=== PATIENT | female | born 1965 | race Caucasian/White ===

== ENCOUNTER → 2018-09-01 | Outpatient (REF) | payer OTHER ==
[2018-09-01 12:49] LABS: BASO % 0.4 % (0.0-1.0); EOS % 0.4 % (0.0-3.0); HEMATOCRIT 43.7 % (36.0-47.0); HEMOGLOBIN 14.6 g/dl (12.0-15.5); IMMATURE GRANULOCYTE % 0.4 % (0-3.0); LYMPH # 1.2 10^3/uL (1.5-4.5); LYMPH % 11.3 % (24.0-44.0); MEAN CORPUSCULAR HEMOGLOBIN 30.9 pg (27.0-33.0); MEAN CORPUSCULAR HGB CONC 33.4 g/dl (32.0-36.5); MEAN CORPUSCULAR VOLUME 92.4 fl (80.0-96.0); MONO # 0.5 10^3/uL (0.0-0.8); MONO % 4.8 % (0.0-5.0); NEUTROPHILS # 9.1 10^3/uL (1.8-7.7); NEUTROPHILS % 82.7 % (36.0-66.0); PLATELET COUNT, AUTOMATED 325 10^3/uL (150-450); RED BLOOD COUNT 4.73 10^6/uL (4.00-5.40); RED CELL DISTRIBUTION WIDTH 12.5 % (11.5-14.5); WHITE BLOOD COUNT 10.9 10^3/uL (4.0-10.0)
[2018-09-01 13:41] LABS: ALBUMIN 3.8 GM/DL (3.2-5.2); ALBUMIN/GLOBULIN RATIO 1.52 (1.00-1.93); ALKALINE PHOSPHATASE 51 U/L (45-117); ALT/SGPT 25 U/L (12-78); ANION GAP 8 MEQ/L (8-16); AST/SGOT 17 U/L (7-37); BILIRUBIN,TOTAL 0.4 MG/DL (0.2-1.0); BLOOD UREA NITROGEN 4 MG/DL (7-18); CALCIUM LEVEL 9.4 MG/DL (8.5-10.1); CARBON DIOXIDE LEVEL 29 MEQ/L (21-32); CHLORIDE LEVEL 96 MEQ/L (98-107); CHOLESTEROL LEVEL 133 MG/DL (<200); CHOLESTEROL RISK RATIO 3.243 (<5); CREATININE FOR GFR 0.71 MG/DL (0.55-1.30); GLOMERULAR FILTRATION RATE > 60.0 (>51); GLUCOSE, FASTING 121 MG/DL (70-100); HDL CHOLESTEROL 41 MG/DL (>40); LDL CHOLESTEROL 77 MG/DL (<100); NON-HDL-C 92 MG/DL; POTASSIUM SERUM 4.3 MEQ/L (3.5-5.1); SODIUM LEVEL 133 MEQ/L (136-145); TOTAL 25(OH) VITAMIN D 29.9 NG/ML (30.0-100.0); TOTAL PROTEIN 6.3 GM/DL (6.4-8.2); TRIGLYCERIDES LEVEL 76 MG/DL (<150)
== END ==
LOC: M SFHCADAM 07:56
DX: G43.009 Migraine without aura, not intractable, without status migrainosus (principal); E78.2 Mixed hyperlipidemia; F33.42 Major depressive disorder, recurrent, in full remission; N39.46 Mixed incontinence

== ENCOUNTER 2019-01-02 16:09 | Emergency (ER) | payer OTHER ==
[~2019-01-02] VITALS: Ht 154.9 cm; Wt 60.0 kg
[2019-01-02] MEDS ORDERED: DOCU100C16 (16:33)
[2019-01-02] MEDS ORDERED: PROM25TA12 (16:33)
[2019-01-02] MEDS ORDERED: OXYB5TAB (16:33)
[2019-01-02] MEDS ORDERED: ASPI1TAB PO (16:33)
[2019-01-02] MEDS ORDERED: SM CPOW (16:33)
[2019-01-02] MEDS ORDERED: PROAAER10 INH (16:33)
[2019-01-02] MEDS ORDERED: TRAZ-163 (16:33)
[2019-01-02] MEDS ORDERED: INCR1INH (16:33)
[2019-01-02] MEDS ORDERED: SIMV20TA2 (16:33)
[2019-01-02] MEDS ORDERED: ESTR0.5T3 (16:33)
[2019-01-02 16:53] LABS: BASO % 0.6 % (0.0-1.0); EOS % 0.4 % (0.0-3.0); HEMATOCRIT 34.9 % (36.0-47.0); LYMPH # 2.1 10^3/uL (1.5-4.5); LYMPH % 30.5 % (24.0-44.0); MEAN CORPUSCULAR HEMOGLOBIN 30.9 pg (27.0-33.0); MEAN CORPUSCULAR HGB CONC 34.4 g/dl (32.0-36.5); MEAN CORPUSCULAR VOLUME 89.9 fl (80.0-96.0); MONO # 0.5 10^3/uL (0.0-0.8); MONO % 6.4 % (0.0-5.0); NEUTROPHILS # 4.3 10^3/uL (1.8-7.7); NEUTROPHILS % 61.7 % (36.0-66.0); PLATELET COUNT, AUTOMATED 265 10^3/uL (150-450); RED BLOOD COUNT 3.88 10^6/uL (4.00-5.40)
[2019-01-02 17:08] LABS: INR 1.04; PROTHROMBIN TIME 13.7 SECONDS (12.1-14.4)
[2019-01-02 17:09] LABS: PARTIAL THROMBOPLASTIN TIME 35.5 SECONDS (25.4-37.6)
[2019-01-02 17:12] LABS: D-DIMER QUANT < 270 ng/ml (<500)
[2019-01-02] MEDS ORDERED: NS 1,000 ML IV ONE (17:15)
[2019-01-02] MEDS ORDERED: ONDANSETRON 4MG/2ML VIAL (J2405) IV ONE (17:15)
[2019-01-02 17:16] LABS: ERYTHROCYTE SEDIMENTATION RATE 8 mm/hr (0-30)
[2019-01-02 17:20] LABS: ALBUMIN 3.8 GM/DL (3.2-5.2); ALT/SGPT 18 U/L (12-78); BILIRUBIN,DIRECT < 0.1 MG/DL (0.0-0.2); BILIRUBIN,TOTAL 0.2 MG/DL (0.2-1.0); BLOOD UREA NITROGEN 5 MG/DL (7-18); C REACTIVE PROTEIN QUANTITATIV < 0.30 MG/DL (0.00-0.30); CALCIUM LEVEL 8.3 MG/DL (8.5-10.1); CARBON DIOXIDE LEVEL 28 MEQ/L (21-32); CHLORIDE LEVEL 96 MEQ/L (98-107); CPK CREATINE PHOSPHOKINASE 77 U/L (26-192); CREATININE FOR GFR 0.62 MG/DL (0.55-1.30); FREE T4 1.03 NG/DL (0.76-1.46); GLOMERULAR FILTRATION RATE > 60.0 (>51); GLUCOSE, FASTING 81 MG/DL (70-100); LIPASE 87 U/L (73-393); MB/CK RELATIVE INDEX 1.56 (< OR =4); NT-PRO BNP 143 PG/ML (<125); POTASSIUM SERUM 4.3 MEQ/L (3.5-5.1); SODIUM LEVEL 128 MEQ/L (136-145); TOTAL PROTEIN 6.3 GM/DL (6.4-8.2); TROPONIN I < 0.02 NG/ML (< 0.10)
[2019-01-02] MEDS ORDERED: ISOVUE-370 76% 100ML VIAL (Q9967) As Ordered ONE (17:57)
--- NOTE | 2019-01-02 18:13 | REP ---
Portable chest x-ray: Single view. History: Chest pain. Findings: EKG monitoring electrodes overlie the chest. The lungs are well inflated and clear. Heart size is normal. The aorta is slightly tortuous. No significant bony abnormality is seen. Pulmonary vasculature is not increased. Impression: No active disease. Electronically Signed by Ever Wilde MD 01/02/2019 06:04 P
--- NOTE | 2019-01-02 18:45 | REPVR ---
EXAM: CT Abdomen and Pelvis With Contrast EXAM DATE/TIME: 01/02/2019 5:04 PM CLINICAL HISTORY: 53 years old, female; Pain and signs and symptoms; Vomiting; Abdominal pain; Generalized; Prior surgery; Surgery date: 6+ months; Surgery type: , hysterectomy; Additional info: Nausea/pain TECHNIQUE: Axial computed tomography images of the abdomen and pelvis with intravenous contrast. All CT scans at this facility use at least one of these dose optimization techniques: automated exposure control; mA and/or kV adjustment per patient size (includes targeted exams where dose is matched to clinical indication); or iterative reconstruction. Coronal and sagittal reformatted images were created and reviewed. CONTRAST: Contrast Material: 100 ml of isovue 370; Contrast Route: iv COMPARISON: No relevant prior studies available. FINDINGS: Lower thorax: Atelectasis or scarring right lung base. ABDOMEN: Liver: There is a diffuse decrease in hepatic parenchymal density, consistent with fatty infiltration. Gallbladder and bile ducts: Normal. No calcified stones. No ductal dilation. Pancreas: Normal. No ductal dilation. Spleen: Normal. No splenomegaly. Adrenals: Normal. No mass. Kidneys and ureters: Normal. No hydronephrosis. Stomach and bowel: Mild diverticulosis is present in the distal colon. No diverticulitis. Appendix: No evidence of appendicitis. PELVIS: Bladder: Unremarkable as visualized. Reproductive: There has been a hysterectomy. ABDOMEN and PELVIS: Intraperitoneal space: Normal. No free air. No significant fluid collection. Bones/joints: Degenerative changes L5-S1. Mild central spinal stenosis L4-5. Soft tissues: Unremarkable. Vasculature: The aorta demonstrates mild atherosclerotic calcification. Lymph nodes: Normal. No enlarged lymph nodes. IMPRESSION: 1. There is a diffuse decrease in hepatic parenchymal density, consistent with fatty infiltration. 2. Mild diverticulosis is present in the distal colon. No diverticulitis. 3. There has been a hysterectomy. Electronically signed by: Howard Garcia On 01/02/2019 18:44:43 PM
--- NOTE | 2019-01-02 18:56 | ECGEPIP ---
Stationary ECG Study [facility] - ED Test Date: 2019-01-02 Pat Name: JOCELYNE SEGOVIA Department: Room: - Gender: F Apprentice Plumber: MONICA : 1965 Requested By: SYLVIA Olivarez Order Number: [id number] Reading MD: Demond Covarrubias Measurements Intervals [place] Rate: 66 P: 54 [place]: 196 QRS: 33 QRSD: 90 T: 33 QT: 404 QTc: 426 Interpretive Statements SINUS RHYTHM LOW QRS VOLTAGE IN PRECORDIAL LEADS NSTTW ABNORMALITIES NO PRIORS FOR COMPARISON Electronically Signed On 01-02-2019 18:56:13 EST by Demond Covarrubias
[2019-01-02] MEDS ORDERED: PROMETHAZINE INJ 25 MG/ML VIAL (J2550) As Ordered ONE (19:10)
[2019-01-02] MEDS ORDERED: PROMETHAZINE INJ 25 MG/ML VIAL (J2550) IV ONE (19:15)
[2019-01-02 20:45] LABS: CPK CREATINE PHOSPHOKINASE 58 U/L (26-192); MB/CK RELATIVE INDEX 1.72 (< OR =4); TROPONIN I < 0.02 NG/ML (< 0.10)
[2019-01-02 21:45] VITALS: BP 117/65
[2019-01-02] MEDS ORDERED: DICY10CA13 PO (22:09)
[2019-01-02] MEDS ORDERED: DICYCLOMINE 10 MG CAP PO ONE (22:15)
--- NOTE | 2019-01-03 05:04 | ECGEPIP ---
Stationary ECG Study [facility] - ED Test Date: 2019-01-02 Pat Name: JOCELYNE SEGOVIA Department: Room: - Gender: F Circuit Court Clerk: NIXON : 1965 Requested By: JUN Martino Order Number: [id number] Reading MD: Demond Covarrubias Measurements Intervals [place] Rate: 64 P: 56 [place]: 213 QRS: 49 QRSD: 70 T: 47 QT: 413 QTc: 429 Interpretive Statements SINUS RHYTHM WITH FIRST DEGREE AV BLOCK LOW QRS VOLTAGE IN PRECORDIAL LEADS POSSIBLE INCOMPLETE RIGHT BUNDLE BRANCH BLOCK NSTTW ABNORMALITIES SIMILAR TO PRIOR ON SAME DATE Electronically Signed On 01-03-2019 5:04:29 EST by Demond Covarrubias
== END 2019-01-02 22:21 | disposition home or self-care (01) ==
LOC: M ED 16:09
DX: R07.89 Other chest pain (principal); K58.9 Irritable bowel syndrome, unspecified; I44.0 Atrioventricular block, first degree; E78.5 Hyperlipidemia, unspecified; G43.909 Migraine, unspecified, not intractable, without status migrainosus; J44.9 Chronic obstructive pulmonary disease, unspecified; F41.9 Anxiety disorder, unspecified; F32.9 Major depressive disorder, single episode, unspecified; Z72.0 Tobacco use; Z79.82 Long term (current) use of aspirin; Z79.899 Other long term (current) drug therapy; Z88.0 Allergy status to penicillin; Z88.8 Allergy status to other drugs, medicaments and biological substances
CPT/HCPCS: 71045; 74177; 80048; 80076; 81001; 82550; 82553; 83690; 83880; 84439; 84443; 85025; 85379; 85610; 85652; 85730; 86140; 93005; 93041; 94760; 96361; 96374; 96375; 99285; J2405; Q9967

== ENCOUNTER → 2019-05-26 | Outpatient (REF) | payer OTHER ==
[~2019-05-26] MED LIST: ASPI81TA26 PO; DICY10CA13 PO; DOCU100C16; ESTR0.5T3; INCR1INH; OXYB5TAB; PROAAER10 INH; PROM25TA12; SIMV20TA2; SM CPOW; TRAZ-163
[2019-05-26 13:56] LABS: APPEARANCE, URINE HAZY (CLEAR); BACTERIA, URINE AUTO NEGATIVE (NEGATIVE); BILIRUBIN, URINE AUTO NEGATIVE (NEGATIVE); BLOOD, URINE BLOOD NEGATIVE (NEGATIVE); COLOR, URINE YELLOW (YELLOW); GLUCOSE, URINE (UA) AUTO NEGATIVE (NEGATIVE); KETONE, URINE AUTO NEGATIVE (NEGATIVE); LEUKOCYTE ESTERASE, URINE AUTO NEGATIVE (NEGATIVE); NITRITE, URINE AUTO NEGATIVE (NEGATIVE); PROTEIN, URINE AUTO NEGATIVE (NEGATIVE); RBC, URINE AUTO 0 /HPF (0-3); SPECIFIC GRAVITY URINE AUTO 1.005 (1.002-1.035); SQUAMOUS EPITHELIAL CELL UR AU 0 /HPF (0-6); UROBILINOGEN, URINE AUTO 0.2 mg/dL (0.0-2.0); WBC, URINE AUTO 0 /HPF (0-3)
== END ==
LOC: M SMT 13:18
PROVIDERS: ATTEND Nurse Practitioner Women's Health
DX: N39.46 Mixed incontinence (principal)

== ENCOUNTER → 2019-06-23 | Outpatient (CLI) | payer OTHER ==
[~2019-06-23] MED LIST changes: -OXYB5TAB; +OXYB5TAB2
--- NOTE | 2019-06-23 20:39 | REP ---
RIGHT KNEE, COMPLETE: 06/23/2019. Clinical history: Right knee pain. Findings: Five views are provided. There is no patellar subluxation or dislocation on the sunrise view. No suprapatellar effusion on the lateral projection. There is no narrowing of the medial or lateral compartments, loose body, osteochondral defect or fracture. No avulsion. Impression: 1. There is no fracture, avulsion, loose body, joint effusion or other acute finding about the knee. Electronically Signed by Harry Glynn MD 06/24/2019 07:59 A
== END ==
LOC: M ADAMS 12:52
PROVIDERS: ATTEND Physician Assistant Medical
DX: M25.561 Pain in right knee (principal)

== ENCOUNTER → 2019-12-22 | Outpatient (REF) | payer OTHER ==
[~2019-12-22] MED LIST changes: +OXYB-54; -OXYB5TAB2; -SIMV20TA2; +SIMV20TA22; -TRAZ-163; +TRAZ-257
== END ==
LOC: M LAB REF 17:55
PROVIDERS: ATTEND Dermatology
DX: D48.9 Neoplasm of uncertain behavior, unspecified (principal)

== ENCOUNTER → 2020-01-07 | Outpatient (REF) | payer OTHER ==
[2020-01-07 14:43] LABS: BACTERIA, URINE AUTO NEGATIVE (NEGATIVE); RBC, URINE AUTO 0 /HPF (0-3); SQUAMOUS EPITHELIAL CELL UR AU 1 /HPF (0-6); WBC, URINE AUTO 1 /HPF (0-3)
== END ==
LOC: M SMT 13:06
PROVIDERS: ATTEND Specialist
DX: N39.46 Mixed incontinence (principal)

== ENCOUNTER → 2020-03-03 | Outpatient (REF) | payer OTHER ==
[2020-03-03 17:53] LABS: APPEARANCE, URINE CLEAR (CLEAR); BACTERIA, URINE AUTO NEGATIVE (NEGATIVE); BILIRUBIN, URINE AUTO NEGATIVE (NEGATIVE); BLOOD, URINE BLOOD NEGATIVE (NEGATIVE); COLOR, URINE STRAW (YELLOW); GLUCOSE, URINE (UA) AUTO NEGATIVE (NEGATIVE); KETONE, URINE AUTO NEGATIVE (NEGATIVE); LEUKOCYTE ESTERASE, URINE AUTO NEGATIVE (NEGATIVE); NITRITE, URINE AUTO NEGATIVE (NEGATIVE); PROTEIN, URINE AUTO NEGATIVE (NEGATIVE); RBC, URINE AUTO 0 /HPF (0-3); SPECIFIC GRAVITY URINE AUTO 1.003 (1.002-1.035); SQUAMOUS EPITHELIAL CELL UR AU 1 /HPF (0-6); UROBILINOGEN, URINE AUTO 0.2 mg/dL (0.0-2.0); WBC, URINE AUTO 0 /HPF (0-3)
== END ==
LOC: M SFHCADAM 17:00
PROVIDERS: ATTEND Physician Assistant Medical
DX: R82.90 Unspecified abnormal findings in urine (principal)

== ENCOUNTER 2020-05-05 11:00 | Emergency (ER) | payer OTHER ==
[~2020-05-05] VITALS: Ht 154.9 cm; Wt 62.3 kg
[~2020-05-05 11:00] MED LIST changes: -DOCU100C16; +DOCU100C16 PO; -ESTR0.5T3; +ESTR0.5T3 PO; -INCR1INH; +INCR1INH INH; -SIMV20TA22; +SIMV20TA22 PO; -SM CPOW; +SM CPOW PO; -TRAZ-257; +TRAZ-257 PO
[2020-05-05] MEDS ORDERED: KETOROLAC 30 MG/ML 1ML VIAL IV ONE (11:15)
[2020-05-05 11:41] LABS: BASO # 0.1 10^3/uL (0.0-0.2); BASO % 0.6 % (0.0-1.0); EOS # 0.1 10^3/uL (0.0-0.5); EOS % 0.7 % (0.0-3.0); HEMATOCRIT 40.3 % (36.0-47.0); HEMOGLOBIN 14.1 g/dl (12.0-15.5); LYMPH # 2.2 10^3/uL (1.5-5.0); LYMPH % 24.4 % (24.0-44.0); MEAN CORPUSCULAR HEMOGLOBIN 32.9 pg (27.0-33.0); MEAN CORPUSCULAR VOLUME 94.2 fl (80.0-96.0); MONO # 0.5 10^3/uL (0.0-0.8); MONO % 5.3 % (0.0-5.0); NEUTROPHILS # 6.2 10^3/uL (1.5-8.5); NEUTROPHILS % 68.7 % (36.0-66.0); PLATELET COUNT, AUTOMATED 253 10^3/uL (150-450); RED BLOOD COUNT 4.28 10^6/uL (4.00-5.40)
[2020-05-05 12:22] LABS: ALBUMIN 3.7 GM/DL (3.2-5.2); ALT/SGPT 26 U/L (12-78); BILIRUBIN,DIRECT 0.1 MG/DL (0.0-0.2); BILIRUBIN,TOTAL 0.3 MG/DL (0.2-1.0); BLOOD UREA NITROGEN 8 MG/DL (7-18); CARBON DIOXIDE LEVEL 28 MEQ/L (21-32); CHLORIDE LEVEL 98 MEQ/L (98-107); CREATININE FOR GFR 0.69 MG/DL (0.55-1.30); GLOMERULAR FILTRATION RATE > 60.0 (>51); GLUCOSE, FASTING 96 MG/DL (70-100); LIPASE 65 U/L (73-393); NT-PRO BNP 127 PG/ML (<125); POTASSIUM SERUM 4.4 MEQ/L (3.5-5.1); SODIUM LEVEL 132 MEQ/L (136-145); THYROID STIMULATING HORMONE 0.931 uIU/ML (0.358-3.740); TOTAL PROTEIN 6.5 GM/DL (6.4-8.2)
--- NOTE | 2020-05-05 12:32 | REP ---
REASON FOR EXAM: Chest pain. COMPARISON: 01/02/2019 FINDINGS: The technique utilized in obtaining the radiograph has magnified the cardiac silhouette and accentuated the interstitial markings. The superior mediastinal structures are midline. The cardiac silhouette is unremarkable in size, shape, and position. The diaphragmatic surfaces of the lungs are regular, and the costophrenic angles are clear. The pulmonary chavez are clear. The imaged osseous structures are intact. IMPRESSION: There is no acute cardiopulmonary disease. Electronically Signed by Crow Mejia DO 05/05/2020 04:56 P
[2020-05-05] MEDS ORDERED: AIMO70IN2 SQ (12:33)
[2020-05-05] MEDS ORDERED: ALL10TAB29 PO (12:33)
[2020-05-05] MEDS ORDERED: AMIT25TA PO (12:33)
[2020-05-05] MEDS ORDERED: DARI15TA2 PO (12:33)
[2020-05-05 12:58] LABS: CK-MB VALUE MASS < 1.0 NG/ML (<3.6); CPK CREATINE PHOSPHOKINASE 38 U/L (26-192); MB/CK RELATIVE INDEX 2.63 (< OR =4); TROPONIN I < 0.02 NG/ML (< 0.10)
[2020-05-05] MEDS ORDERED: ISOVUE-370 76% 100ML VIAL As Ordered ONE (13:46)
[2020-05-05] MEDS ORDERED: NORCO, ANEXSIA 5/325MG TABLET (HYDROcodone/ACETAMINOPHEN) PO ONE (14:45)
[2020-05-05 16:45] VITALS: BP 117/71
[2020-05-05 17:37] LABS: CK-MB VALUE MASS < 1.0 NG/ML (<3.6); CPK CREATINE PHOSPHOKINASE 31 U/L (26-192); MB/CK RELATIVE INDEX 3.23 (< OR =4); TROPONIN I < 0.02 NG/ML (< 0.10)
--- NOTE | 2020-05-05 23:26 | REP ---
REASON FOR EXAM: Chest pain. PRIORS: None. CONTRAST: 100 mL Isovue-370. There is excellent visualization of the pulmonary arterial vasculature. There are no focal filling defects present that would be considered consistent with pulmonary emboli. There are no pleural or pericardial effusions. There is no mediastinal or hilar adenopathy or mass. The imaged upper abdomen and imaged osseous structures are within normal limits. Evaluation of the lung hcavez shows mild biapical emphysematous changes and bilateral basilar subsegmental atelectatic changes. IMPRESSION: 1. There is no evidence of pulmonary embolus. 2. Chronic change seen involving the lung chavez, as described above, suggestive of early emphysematous changes. Since there are no priors for comparison, consider followup. Electronically Signed by Crow Mejia DO 05/06/2020 08:53 A
--- NOTE | 2020-05-06 10:08 | ECGEPIP ---
[facility] - ED Test Date: 2020-05-05 Pat Name: JOCELYNE SEGOVIA Department: Room: - Gender: Female Solar Consultant: abram : 1965 Requested By: Whit Holloway Order Number: [id number] Reading MD: Whit Holloway Measurements Intervals [place] Rate: 75 P: 55 [place]: 195 QRS: 26 QRSD: 60 T: 43 QT: 373 QTc: 419 Interpretive Statements SINUS RHYTHM LOW QRS VOLTAGE ANTEROSEPTAL MYOCARDIAL INFARCTION, OF INDETERMINATE AGE INCREASED RATE 01/02/19 Electronically Signed on 05-06-2020 10:08:23 EDT by Whit Holloway
--- NOTE | 2020-05-06 10:12 | ECGEPIP ---
[facility] - ED Test Date: 2020-05-05 Pat Name: JOCELYNE SEGOVIA Department: Room: - Gender: Female Sales Order Clerk: abram : 1965 Requested By: Whit Holloway Order Number: [id number] Reading MD: Whit Holloway Measurements Intervals [place] Rate: 57 P: 55 [place]: 191 QRS: 28 QRSD: 85 T: 48 QT: 437 QTc: 429 Interpretive Statements SINUS BRADYCARDIA LOW QRS VOLTAGE SEPTAL MYOCARDIAL INFARCTION, PROBABLY OLD DECREASED RATE 05/05/20 Electronically Signed on 05-06-2020 10:12:04 EDT by Whit Holloway
--- NOTE | 2020-05-06 10:14 | ECGEPIP ---
[facility] - ED Test Date: 2020-05-05 Pat Name: JOCELYNE SEGOVIA Department: Room: - Gender: Female Laminate Floor Installer: abram : 1965 Requested By: Whit Holloway Order Number: [id number] Reading MD: Whit Holloway Measurements Intervals [place] Rate: 66 P: 53 [place]: 209 QRS: 18 QRSD: 78 T: 30 QT: 415 QTc: 436 Interpretive Statements SINUS RHYTHM LOW QRS VOLTAGE IN PRECORDIAL LEADS SEPTAL MYOCARDIAL INFARCTION, PROBABLY OLD DECREASED RATE 05/05/20 Electronically Signed on 05-06-2020 10:14:30 EDT by Whit Holloway
== END 2020-05-05 17:47 | disposition left against medical advice (07) ==
LOC: M ED 11:00 → EDBD 11:00 → M ED 17:47
DX: R07.89 Other chest pain (principal); R00.1 Bradycardia, unspecified; R91.8 Other nonspecific abnormal finding of lung field; E78.5 Hyperlipidemia, unspecified; J44.9 Chronic obstructive pulmonary disease, unspecified; J30.2 Other seasonal allergic rhinitis; Z86.73 Personal history of transient ischemic attack (TIA), and cerebral infarction without residual deficits; Z95.5 Presence of coronary angioplasty implant and graft; Z72.0 Tobacco use; Z79.82 Long term (current) use of aspirin; Z79.899 Other long term (current) drug therapy; Z88.0 Allergy status to penicillin; Z88.8 Allergy status to other drugs, medicaments and biological substances
CPT/HCPCS: 71045; 71275; 80048; 80076; 82550; 82553; 83690; 83880; 84443; 85025; 93005; 93041; 94760; 96374; 99285; J1885; Q9967

== ENCOUNTER → 2020-05-10 | Outpatient (CLI) | payer OTHER ==
[~2020-05-10] MED LIST changes: +AIMO70IN2 SQ; +AMIT25TA PO; +CETI-24 PO; +DARI15TA11 PO
--- NOTE | 2020-05-10 17:27 | REP ---
CERVICAL SPINE SERIES: REASON: Atraumatic neck pain. No priors. FINDINGS: Seven views of the cervical spine show no acute fracture, dislocation, or subluxation. The intervertebral disc spaces are symmetric and well maintained. The facet joints are well aligned bilaterally. The intervertebral foramina are patent bilaterally, and the neural canal is not encroached upon. There is no destructive osseous lesion. Flexion and extension does not appear to be particularly limited radiographically. The anterior spinal soft tissues appear unremarkable. IMPRESSION: Unremarkable cervical spine series. The dens cannot be effectively evaluated secondary to the superimposition of osseous structures and/or dentition on all views. Electronically Signed by Crow Mejia DO 05/10/2020 06:50 P
--- NOTE | 2020-05-10 17:51 | REP ---
SHOULDER: REASON: Shoulder pain, atraumatic. COMPARISON: No priors. FINDINGS: Three views of the shoulder were performed. The acromioclavicular and glenohumeral relationships are within normal limits. There is no acute fracture or destructive osseous lesion. Electronically Signed by Crow Mejia DO 05/10/2020 06:50 P
== END ==
LOC: M ADAMS 11:39
PROVIDERS: ATTEND Physician Assistant Medical
DX: M54.2 Cervicalgia (principal); M25.512 Pain in left shoulder

== ENCOUNTER → 2020-07-26 | Outpatient (CLI) | payer OTHER | LOC: M PLALAB 15:08 | PROVIDERS: ATTEND Internal Medicine Cardiovascular Disease | DX: R94.31 Abnormal electrocardiogram [ECG] [EKG] (principal); R07.2 Precordial pain ==

== ENCOUNTER → 2020-09-13 | Outpatient (REF) | payer OTHER | LOC: M SFHCADAM 15:23 | PROVIDERS: ATTEND Physician Assistant Medical | DX: N94.9 Unspecified condition associated with female genital organs and menstrual cycle (principal); N89.8 Other specified noninflammatory disorders of vagina ==

== ENCOUNTER → 2020-11-18 | Outpatient (REF) | payer OTHER ==
[~2020-11-18] MED LIST changes: -AMIT25TA PO; +AMIT25TA17 PO
== END ==
LOC: M SFHCADAM 11:25
PROVIDERS: ATTEND Physician Assistant Medical
DX: J06.9 Acute upper respiratory infection, unspecified (principal)

== ENCOUNTER → 2021-05-12 | Outpatient (CLI) | payer SELFPAY | LOC: M LABSMTC 09:58 | PROVIDERS: ATTEND Pediatrics | DX: Z20.822 Contact with and (suspected) exposure to COVID-19 (principal) ==

== ENCOUNTER → 2021-05-15 | Outpatient (CLI) | payer OTHER ==
--- NOTE | 2021-05-15 11:21 | REP ---
INDICATION: COUGH COMPARISON: CT 05/05/2020. TECHNIQUE: PA/Lateral FINDINGS: Lungs: Clear, no infiltrate. Heart: Normal in size. Mediastinum: Mediastinal silhouette unremarkable. Pleural angles: Unremarkable.. Bones and soft tissues: Unremarkable. IMPRESSION: No acute pulmonary disease. <Electronically signed by Misha Soler > 05/15/21 [id number]
== END ==
LOC: M ADAMS 09:41
PROVIDERS: ATTEND Family Medicine
DX: R05 Cough (principal)

== ENCOUNTER 2021-07-24 16:32 | Emergency (ER) | payer OTHER ==
[~2021-07-24] VITALS: Ht 154.9 cm; Wt 64.1 kg
--- NOTE | 2021-07-24 17:10 | REP ---
INDICATION: CHEST PAIN. COMPARISON: Comparison chest x-ray May 15, 2021. TECHNIQUE: Portable upright AP chest radiograph. FINDINGS: The lungs are well inflated and free of infiltrate. Pleural angles are sharp. Heart size is normal. Pulmonary vasculature is not increased. EKG electrodes are visible. IMPRESSION: No active disease. <Electronically signed by Enrique Wilde > 07/24/21 [id number]
[2021-07-24 17:11] LABS: BASO % 0.5 % (0.0-1.0); EOS # 0.1 10^3/uL (0.0-0.5); EOS % 0.7 % (0.0-3.0); HEMATOCRIT 38.7 % (36.0-47.0); HEMOGLOBIN 13.3 g/dl (12.0-15.5); LYMPH # 2.5 10^3/uL (1.5-5.0); LYMPH % 31.4 % (24.0-44.0); MEAN CORPUSCULAR HEMOGLOBIN 33.1 pg (27.0-33.0); MEAN CORPUSCULAR HGB CONC 34.4 g/dl (32.0-36.5); MEAN CORPUSCULAR VOLUME 96.3 fl (80.0-96.0); MONO # 0.5 10^3/uL (0.0-0.8); MONO % 6.2 % (2.0-8.0); NEUTROPHILS # 4.9 10^3/uL (1.5-8.5); PLATELET COUNT, AUTOMATED 283 10^3/uL (150-450); RED BLOOD COUNT 4.02 10^6/uL (4.00-5.40)
[2021-07-24] MEDS ORDERED: AMIT50TA PO (17:13)
[2021-07-24 17:38] LABS: ALBUMIN 3.5 GM/DL (3.2-5.2); ALT/SGPT 28 U/L (12-78); BILIRUBIN,DIRECT 0.1 MG/DL (0.0-0.2); BILIRUBIN,TOTAL 0.3 MG/DL (0.2-1.0); CK-MB VALUE MASS 1.4 NG/ML (<3.6); CPK CREATINE PHOSPHOKINASE 34 U/L (26-192); LIPASE 53 U/L (73-393); MB/CK RELATIVE INDEX 4.12 (< OR =4); TOTAL PROTEIN 6.2 GM/DL (6.4-8.2); TROPONIN I < 0.02 NG/ML (< 0.10)
[2021-07-24] MEDS ORDERED: KETOROLAC 30 MG/ML 1ML VIAL IV ONE (18:10)
[2021-07-24 19:30] VITALS: BP 141/67
--- NOTE | 2021-07-25 05:02 | ECGEPIP ---
[facility] - ED Test Date: 2021-07-24 Pat Name: JOCELYNE SEGOVIA Department: Room: - Gender: Female Second Cutter: DARRYN : 1965 Requested By: Demond Delgado Order Number: [id number] Reading MD: Danish Garcia Measurements Intervals [place] Rate: 68 P: 52 [place]: 172 QRS: 43 QRSD: 70 T: 48 QT: 402 QTc: 427 Interpretive Statements Normal sinus rhythm Low voltage QRS throughout Septal infarct , age undetermined Similar to tracing done 05-05-20 Electronically Signed on 07-25-2021 5:01:50 EDT by Danish Garcia
== END 2021-07-24 19:45 | disposition home or self-care (01) ==
LOC: M ED 16:32
DX: R07.89 Other chest pain (principal); I50.9 Heart failure, unspecified; E78.5 Hyperlipidemia, unspecified; Z86.73 Personal history of transient ischemic attack (TIA), and cerebral infarction without residual deficits; F32.9 Major depressive disorder, single episode, unspecified; F41.9 Anxiety disorder, unspecified; F17.200 Nicotine dependence, unspecified, uncomplicated; Z79.82 Long term (current) use of aspirin; Z79.899 Other long term (current) drug therapy; Z88.0 Allergy status to penicillin; Z88.1 Allergy status to other antibiotic agents; Z88.8 Allergy status to other drugs, medicaments and biological substances
CPT/HCPCS: 71045; 80047; 80076; 82550; 82553; 83690; 85025; 93005; 93041; 94760; 96374; 99285; J1885

== ENCOUNTER → 2022-02-08 | Outpatient (REF) | payer OTHER ==
[~2022-02-08] MED LIST changes: +AMIT50TA PO
[2022-02-08 13:28] LABS: BASO # 0.1 10^3/uL (0.0-0.2); BASO % 0.8 % (0.0-1.0); EOS # 0.1 10^3/uL (0.0-0.5); HEMATOCRIT 40.6 % (36.0-47.0); HEMOGLOBIN 13.6 g/dl (12.0-15.5); LYMPH # 1.5 10^3/uL (1.5-5.0); LYMPH % 24.2 % (24.0-44.0); MEAN CORPUSCULAR HEMOGLOBIN 32.2 pg (27.0-33.0); MEAN CORPUSCULAR HGB CONC 33.5 g/dl (32.0-36.5); MEAN CORPUSCULAR VOLUME 96.2 fl (80.0-96.0); MONO # 0.5 10^3/uL (0.0-0.8); MONO % 7.1 % (2.0-8.0); NEUTROPHILS # 4.2 10^3/uL (1.5-8.5); NEUTROPHILS % 66.4 % (36.0-66.0); PLATELET COUNT, AUTOMATED 275 10^3/uL (150-450); RED BLOOD COUNT 4.22 10^6/uL (4.00-5.40); WHITE BLOOD COUNT 6.3 10^3/uL (4.0-10.0)
[2022-02-08 14:04] LABS: ALBUMIN 3.7 GM/DL (3.2-5.2); ALT/SGPT 26 U/L (12-78); BILIRUBIN,TOTAL 0.3 MG/DL (0.2-1.0); BLOOD UREA NITROGEN 7 MG/DL (7-18); CALCIUM LEVEL 9.5 MG/DL (8.5-10.1); CARBON DIOXIDE LEVEL 29 MEQ/L (21-32); CHLORIDE LEVEL 100 MEQ/L (98-107); CHOLESTEROL LEVEL 196 MG/DL (<200); GLOMERULAR FILTRATION RATE > 60.0 (>51); GLUCOSE, FASTING 94 MG/DL (70-100); HDL CHOLESTEROL 71 MG/DL (>40); LDL CHOLESTEROL 111 MG/DL (<100); NON-HDL-C 125 MG/DL; POTASSIUM SERUM 4.7 MEQ/L (3.5-5.1); SODIUM LEVEL 134 MEQ/L (136-145); THYROID STIMULATING HORMONE 0.751 uIU/ML (0.358-3.740); TOTAL PROTEIN 6.4 GM/DL (6.4-8.2); TRIGLYCERIDES LEVEL 72 MG/DL (<150)
== END ==
LOC: M SFHCPLAZ 09:50
PROVIDERS: ATTEND Family Medicine
DX: Z00.00 Encounter for general adult medical examination without abnormal findings (principal)

== ENCOUNTER → 2022-08-07 | Outpatient (REF) | payer OTHER | LOC: M SFHCADAM 12:36 | PROVIDERS: ATTEND Family Medicine | DX: R09.89 Other specified symptoms and signs involving the circulatory and respiratory systems (principal) ==

== ENCOUNTER → 2022-08-24 | Outpatient (CLI) | payer OTHER | LOC: M RAD 12:18 | PROVIDERS: ATTEND Family Medicine | DX: R22.2 Localized swelling, mass and lump, trunk (principal) ==

== ENCOUNTER → 2022-10-30 | Outpatient (CLI) | payer BC | LOC: M ADAMS 15:33 | PROVIDERS: ATTEND Physician Assistant | DX: R07.89 Other chest pain (principal); J06.9 Acute upper respiratory infection, unspecified; F17.210 Nicotine dependence, cigarettes, uncomplicated; J84.10 Pulmonary fibrosis, unspecified ==

== ENCOUNTER → 2022-11-01 | Outpatient (CLI) | payer BC ==
[~2022-11-01] MED LIST changes: +OMEGA-3 1000MG CAPSULE ONE; +PROHANCE 279.3MG/ML 5ML VIAL ONE
== END ==
LOC: M PLAIMG 08:35
PROVIDERS: ATTEND Family Medicine
DX: R22.9 Localized swelling, mass and lump, unspecified (principal)
CPT/HCPCS: 72197; A9576

== ENCOUNTER 2022-12-11 14:23 | Emergency (ER) | payer BC ==
[~2022-12-11] VITALS: Ht 154.9 cm; Wt 54.1 kg
[~2022-12-11 14:23] MED LIST changes: -OMEGA-3 1000MG CAPSULE ONE; -PROHANCE 279.3MG/ML 5ML VIAL ONE
[2022-12-11 14:34] VITALS: BP 198/68
== END 2022-12-11 17:32 | disposition left against medical advice (07) ==
LOC: EDBD 14:23 → M ED 14:23
DX: Z53.21 Procedure and treatment not carried out due to patient leaving prior to being seen by health care provider (principal)

== ENCOUNTER → 2023-01-18 | Outpatient (CLI) | payer BC | LOC: M WHC 13:02 | PROVIDERS: ATTEND Student in an Organized Health Care Education/Training Program | DX: Z12.31 Encounter for screening mammogram for malignant neoplasm of breast (principal) ==

== ENCOUNTER → 2023-10-10 | Outpatient (CLI) | payer BC ==
[~2023-10-10] MED LIST changes: -AMIT25TA17 PO; +AMIT25TA19 PO; +DICY-61 PO; -DICY10CA13 PO
== END ==
LOC: M RAD 09:24
PROVIDERS: ATTEND Student in an Organized Health Care Education/Training Program
DX: Z12.2 Encounter for screening for malignant neoplasm of respiratory organs (principal); F17.210 Nicotine dependence, cigarettes, uncomplicated; J84.10 Pulmonary fibrosis, unspecified; J43.2 Centrilobular emphysema; J47.9 Bronchiectasis, uncomplicated; I77.819 Aortic ectasia, unspecified site

== ENCOUNTER 2023-11-25 14:13 | Emergency (ER) | payer BC ==
[~2023-11-25] VITALS: Ht 154.9 cm; Wt 50.8 kg
[2023-11-25 14:13] VITALS: BP 131/70; TEMP 98; O2SAT 96
== END 2023-11-25 17:58 | disposition left against medical advice (07) ==
LOC: M ED 14:13
DX: Z53.21 Procedure and treatment not carried out due to patient leaving prior to being seen by health care provider (principal)

== ENCOUNTER 2023-12-18 11:35 | Day surgery (SDC) | payer BC ==
[~2023-12-18] VITALS: Ht 154.9 cm; Wt 49.3 kg
[~2023-12-18 11:35] MED LIST changes: +ALBU8.5H INH; +ATIV1TAB7 PO; +BACI1TAB20 PO; +CIME-49 PO; +EQL50TAB2 PO; +MELA5CAP2 PO; +PROM50TA4 PO; +THERTAB52 PO; +potassium PO
[2023-12-18] MEDS: NS 1,000 ML IV ONE (12:01)
[2023-12-18] MEDS ORDERED: propofoL 200 MG/20 ML VIAL As Ordered ONE (13:20)
[2023-12-18] MEDS ORDERED: LIDOCAINE 2% 100MG/5ML SDV (FOR ANES.) As Ordered ONE (13:20)
[2023-12-18] MEDS ORDERED: fentaNYL 100 MCG/2 ML INJECTION As Ordered ONE (13:20)
[2023-12-18 14:10] VITALS: TEMP 98.3
[2023-12-18 14:24] VITALS: BP 134/66; O2SAT 98
== END 2023-12-18 14:37 | disposition home or self-care (01) ==
LOC: M OPP 11:35
PROVIDERS: ATTEND Internal Medicine Gastroenterology
DX: Z12.11 Encounter for screening for malignant neoplasm of colon (principal); K64.0 First degree hemorrhoids; K20.90 Esophagitis, unspecified without bleeding; R12 Heartburn; F17.210 Nicotine dependence, cigarettes, uncomplicated; Z86.73 Personal history of transient ischemic attack (TIA), and cerebral infarction without residual deficits; R07.9 Chest pain, unspecified; Z79.51 Long term (current) use of inhaled steroids; Z79.818 Long term (current) use of other agents affecting estrogen receptors and estrogen levels; Z79.891 Long term (current) use of opiate analgesic; Z79.899 Other long term (current) drug therapy; Z88.1 Allergy status to other antibiotic agents; Z88.8 Allergy status to other drugs, medicaments and biological substances
CPT/HCPCS: 43239; 45378; 88305; J3010

== ENCOUNTER → 2024-03-12 | Outpatient (CLI) | payer BC | LOC: M RAD 13:04 | PROVIDERS: ATTEND Student in an Organized Health Care Education/Training Program | DX: R59.1 Generalized enlarged lymph nodes (principal) ==

== ENCOUNTER 2024-04-17 08:58 | Emergency (ER) | payer BC ==
[~2024-04-17] VITALS: Ht 154.9 cm; Wt 53.6 kg
[2024-04-17 10:55] LABS: OSMOLALITY URINE 108 MOSM/KG (50-1400)
[2024-04-17 11:12] LABS: SODIUM,RANDOM URINE 20 MMOL/L
[2024-04-17 11:18] LABS: BASO # 0.1 10^3/uL (0.0-0.2); BASO % 0.8 % (0.0-1.0); EOS # 0.1 10^3/uL (0.0-0.5); EOS % 0.7 % (0.0-3.0); HEMATOCRIT 37.6 % (36.0-47.0); HEMOGLOBIN 13.2 g/dl (12.0-15.5); LYMPH # 2.7 10^3/uL (1.5-5.0); LYMPH % 36.7 % (24.0-44.0); MEAN CORPUSCULAR HEMOGLOBIN 33.1 pg (27.0-33.0); MEAN CORPUSCULAR HGB CONC 35.1 g/dl (32.0-36.5); MEAN CORPUSCULAR VOLUME 94.2 fl (80.0-96.0); MONO # 0.4 10^3/uL (0.0-0.8); MONO % 5.7 % (2.0-8.0); NEUTROPHILS # 4.1 10^3/uL (1.5-8.5); NEUTROPHILS % 55.8 % (36.0-66.0); PLATELET COUNT, AUTOMATED 285 10^3/uL (150-450); RED BLOOD COUNT 3.99 10^6/uL (4.00-5.40); WHITE BLOOD COUNT 7.3 10^3/uL (4.0-10.0)
[2024-04-17 11:22] LABS: CREATININE,RANDOM URINE < 13.0 MG/DL
[2024-04-17 11:47] LABS: OSMOLALITY SERUM 267 MOSM/KG (275-295)
[2024-04-17 11:53] LABS: ALBUMIN 3.9 G/DL (3.2-5.2); ALKALINE PHOSPHATASE 63 U/L (46-116); ALT/SGPT 22 U/L (7.0-40); AST/SGOT 13 U/L (<34); BILIRUBIN,DIRECT 0.1 MG/DL (<0.4); BILIRUBIN,TOTAL 0.4 MG/DL (0.3-1.2); BLOOD UREA NITROGEN 7 MG/DL (9-23); CALCIUM LEVEL 9.5 MG/DL (8.5-10.1); CARBON DIOXIDE LEVEL 31 MMOL/L (20-31); CHLORIDE LEVEL 96 MMOL/L (98-107); GLOMERULAR FILTRATION RATE > 60.0 (>51); GLUCOSE, FASTING 93 MG/DL (60-100); POTASSIUM SERUM 4.3 MMOL/L (3.5-5.1); SODIUM LEVEL 128 MMOL/L (136-145); TOTAL PROTEIN 6.3 G/DL (5.7-8.2)
[2024-04-17 11:54] LABS: THYROID STIMULATING HORMONE 1.103 uIU/ML (0.55-4.78)
[2024-04-17 11:55] LABS: FREE T4 1.13 NG/DL (0.89-1.76)
[2024-04-17] MEDS: NS 500 ML IV ONE (13:40)
[2024-04-17] MEDS ORDERED: SODI1TAB12 PO (14:05)
[2024-04-17] MEDS ORDERED: HOME MED LIST COMPLETE! XX SCH (14:15)
[2024-04-17] MEDS ORDERED: PROM25TA12 PO (14:15)
[2024-04-17] MEDS ORDERED: POTA99CA2 PO (14:15)
[2024-04-17] MEDS ORDERED: ZINC50TA17 PO (14:15)
[2024-04-17] MEDS ORDERED: VITA500C24 PO (14:15)
[2024-04-17] MEDS ORDERED: MAGN400T35 PO (14:15)
[2024-04-17 14:24] VITALS: BP 135/87; O2SAT 99
[2024-04-17 14:25] VITALS: TEMP 97.7
== END 2024-04-17 14:40 | disposition home or self-care (01) ==
LOC: M ED 08:58
DX: E87.1 Hypo-osmolality and hyponatremia (principal); R91.1 Solitary pulmonary nodule; F41.9 Anxiety disorder, unspecified; K58.9 Irritable bowel syndrome, unspecified; F17.200 Nicotine dependence, unspecified, uncomplicated; Z86.73 Personal history of transient ischemic attack (TIA), and cerebral infarction without residual deficits; Z88.1 Allergy status to other antibiotic agents; Z88.8 Allergy status to other drugs, medicaments and biological substances; Z79.52 Long term (current) use of systemic steroids; Z79.810 Long term (current) use of selective estrogen receptor modulators (SERMs); Z79.899 Other long term (current) drug therapy

== ENCOUNTER → 2024-12-17 | Outpatient (CLI) | payer OTHER ==
[~2024-12-17] MED LIST changes: +MAGN400T35 PO; +POTA99CA2 PO; +PROHANCE 279.3MG/ML 15ML VIAL As Ordered ONE; +PROM25TA12 PO; +SODI1TAB12 PO; +VITA500C24 PO; +ZINC50TA17 PO
== END ==
LOC: M RAD 12:29
PROVIDERS: ATTEND Orthopaedic Surgery
DX: M71.21 Synovial cyst of popliteal space [Baker], right knee (principal); M25.461 Effusion, right knee; S83.241A Other tear of medial meniscus, current injury, right knee, initial encounter; S83.281A Other tear of lateral meniscus, current injury, right knee, initial encounter
CPT/HCPCS: 73723; A9576

== ENCOUNTER → 2024-12-22 | Outpatient (CLI) | payer BC ==
[~2024-12-22] MED LIST changes: -PROHANCE 279.3MG/ML 15ML VIAL As Ordered ONE
== END ==
LOC: M WHC 08:07
PROVIDERS: ATTEND Family Medicine
DX: Z12.31 Encounter for screening mammogram for malignant neoplasm of breast (principal); R63.4 Abnormal weight loss; R92.333 Mammographic heterogeneous density, bilateral breasts

== ENCOUNTER 2024-12-24 10:49 | Emergency (ER) | payer BC ==
[~2024-12-24] VITALS: Ht 154.9 cm; Wt 52.3 kg
[2024-12-24 11:30] LABS: BASO # 0.1 10^3/uL (0.0-0.2); BASO % 0.7 % (0.0-1.0); EOS % 0.5 % (0.0-3.0); HEMATOCRIT 37.5 % (36.0-47.0); LYMPH # 2.2 10^3/uL (1.5-5.0); LYMPH % 27.5 % (24.0-44.0); MEAN CORPUSCULAR HEMOGLOBIN 33.6 pg (27.0-33.0); MEAN CORPUSCULAR HGB CONC 34.7 g/dl (32.0-36.5); MEAN CORPUSCULAR VOLUME 96.9 fl (80.0-96.0); MONO # 0.5 10^3/uL (0.0-0.8); MONO % 6.7 % (2.0-8.0); NEUTROPHILS # 5.1 10^3/uL (1.5-8.5); NEUTROPHILS % 64.2 % (36.0-66.0); PLATELET COUNT, AUTOMATED 259 10^3/uL (150-450); RED BLOOD COUNT 3.87 10^6/uL (4.00-5.40)
[2024-12-24 12:01] LABS: ALBUMIN 3.9 G/DL (3.2-5.2); ALKALINE PHOSPHATASE 57 U/L (35-104); ALT/SGPT 20 U/L (7.0-40); AST/SGOT 15 U/L (<34); BILIRUBIN,DIRECT < 0.1 MG/DL (<0.4); BILIRUBIN,TOTAL 0.3 MG/DL (0.3-1.2); BLOOD UREA NITROGEN 8 MG/DL (9-23); CARBON DIOXIDE LEVEL 29 MMOL/L (20-31); CHLORIDE LEVEL 97 MMOL/L (98-107); CREATININE FOR GFR 0.59 MG/DL (0.55-1.30); GLOMERULAR FILTRATION RATE > 60.0 (>45); GLUCOSE, FASTING 98 MG/DL (74-106); POTASSIUM SERUM 4.4 MMOL/L (3.5-5.1); SODIUM LEVEL 131 MMOL/L (136-145); TOTAL PROTEIN 6.3 G/DL (5.7-8.2)
[2024-12-24 12:03] LABS: THYROID STIMULATING HORMONE 0.861 uIU/ML (0.55-4.78)
[2024-12-24 12:04] LABS: RSV AMPLIFICATION NEGATIVE (NEGATIVE)
[2024-12-24] MEDS: NS 500 ML IV ONE (14:20)
[2024-12-24 15:15] VITALS: BP 144/82
[2024-12-24 15:23] VITALS: O2SAT 93
[2024-12-24 15:33] VITALS: TEMP 96.9
== END 2024-12-24 15:42 | disposition home or self-care (01) ==
LOC: EDBD 10:49 → M ED 10:49
DX: R53.83 Other fatigue (principal); F32.A Depression, unspecified; F51.01 Primary insomnia; F41.9 Anxiety disorder, unspecified; G43.909 Migraine, unspecified, not intractable, without status migrainosus; J44.9 Chronic obstructive pulmonary disease, unspecified; F17.200 Nicotine dependence, unspecified, uncomplicated; E78.5 Hyperlipidemia, unspecified; Z79.52 Long term (current) use of systemic steroids; Z79.899 Other long term (current) drug therapy; Z88.1 Allergy status to other antibiotic agents; Z88.8 Allergy status to other drugs, medicaments and biological substances

== ENCOUNTER 2025-10-15 09:13 | Emergency (ER) | payer BC ==
[~2025-10-15] VITALS: Ht 154.9 cm; Wt 48.7 kg
[~2025-10-15 09:13] MED LIST changes: -EQL50TAB2 PO; +POLY119P PO; -SM CPOW PO; +VITA1TAB82 PO
[2025-10-15 11:51] LABS: BASO # 0.0 10^3/uL (0.0-0.2); BASO % 0.6 % (0.0-1.0); EOS # 0.0 10^3/uL (0.0-0.5); EOS % 0.3 % (0.0-3.0); LYMPH # 1.4 10^3/uL (1.5-5.0); LYMPH % 21.6 % (24.0-44.0); MONO # 0.5 10^3/uL (0.0-0.8); MONO % 6.9 % (2.0-8.0); NEUTROPHILS # 4.6 10^3/uL (1.5-8.5); NEUTROPHILS % 70.3 % (36.0-66.0); PLATELET COUNT, AUTOMATED 258 10^3/uL (150-450)
[2025-10-15 12:08] LABS: INR 0.95
[2025-10-15 12:09] LABS: ALT/SGPT 27 U/L (7.0-40); AST/SGOT 27 U/L (<34); CALCIUM LEVEL 9.5 MG/DL (8.3-10.6); CARBON DIOXIDE LEVEL 31 MMOL/L (20-31); CHLORIDE LEVEL 97 MMOL/L (98-107); CREATININE FOR GFR 0.62 MG/DL (0.55-1.30); GLOMERULAR FILTRATION RATE > 90.0 (>45); POTASSIUM SERUM 4.0 MMOL/L (3.5-5.1); SODIUM LEVEL 132 MMOL/L (136-145)
[2025-10-15] MEDS: PANTOPRAZOLE 40MG VIAL IV ONE (12:10)
[2025-10-15] MEDS: NS 500 ML IV ONE (12:13)
[2025-10-15] MEDS ORDERED: ISOVUE-370 76% 100 ML VIAL As Ordered ONE (12:15)
[2025-10-15 13:00] LABS: CK-MB VALUE MASS 3.1 NG/ML (<3.6); CPK CREATINE PHOSPHOKINASE 65 U/L (34-145); MB/CK RELATIVE INDEX 4.76 (< OR =4)
[2025-10-15 15:37] LABS: CALCIUM LEVEL 8.9 MG/DL (8.3-10.6); CARBON DIOXIDE LEVEL 31 MMOL/L (20-31); CHLORIDE LEVEL 99 MMOL/L (98-107); CREATININE FOR GFR 0.59 MG/DL (0.55-1.30); GLOMERULAR FILTRATION RATE > 90.0 (>45); POTASSIUM SERUM 4.1 MMOL/L (3.5-5.1); SODIUM LEVEL 135 MMOL/L (136-145)
[2025-10-15] MEDS ORDERED: NS 0.9% IV ONE (15:50)
[2025-10-15] MEDS ORDERED: [UNRECOGNIZED DRUG - OTHER] IV ONE (15:50)
[2025-10-15] MEDS ORDERED: COLA100C5 PO (16:07)
[2025-10-15] MEDS: NS 0.9% IV ONE (16:08)
[2025-10-15] MEDS: [UNRECOGNIZED DRUG - OTHER] IV ONE (16:08)
[2025-10-15] MEDS: DICYCLOMINE 10 MG CAP PO ONE (16:30)
[2025-10-15 16:45] VITALS: BP 150/72; TEMP 98; O2SAT 97
== END 2025-10-15 17:12 | disposition home or self-care (01) ==
LOC: M ED 09:13
DX: E86.0 Dehydration (principal); K59.00 Constipation, unspecified; K64.8 Other hemorrhoids; E87.1 Hypo-osmolality and hyponatremia; K21.9 Gastro-esophageal reflux disease without esophagitis; F41.9 Anxiety disorder, unspecified; K58.9 Irritable bowel syndrome, unspecified; J44.9 Chronic obstructive pulmonary disease, unspecified; E78.5 Hyperlipidemia, unspecified; Z86.79 Personal history of other diseases of the circulatory system; F17.200 Nicotine dependence, unspecified, uncomplicated; F10.10 Alcohol abuse, uncomplicated; Z88.1 Allergy status to other antibiotic agents; Z88.8 Allergy status to other drugs, medicaments and biological substances; Z79.52 Long term (current) use of systemic steroids; Z79.899 Other long term (current) drug therapy
CPT/HCPCS: 74174; 80048; 80076; 82550; 82553; 83605; 83690; 84484; 85025; 85384; 85610; 85730; 86850; 86900; 86901; 96360; 96361; 96375; 99285; J2470; Q9967

== ENCOUNTER → 2025-10-27 | Outpatient (CLI) | payer BC ==
[~2025-10-27] MED LIST changes: +COLA100C5 PO
[2025-10-27 13:53] LABS: BASO # 0.0 10^3/uL (0.0-0.2); BASO % 0.6 % (0.0-1.0); EOS # 0.0 10^3/uL (0.0-0.5); EOS % 0.3 % (0.0-3.0); LYMPH # 1.1 10^3/uL (1.5-5.0); LYMPH % 15.1 % (24.0-44.0); MONO # 0.5 10^3/uL (0.0-0.8); MONO % 6.8 % (2.0-8.0); NEUTROPHILS # 5.4 10^3/uL (1.5-8.5); NEUTROPHILS % 76.9 % (36.0-66.0); PLATELET COUNT, AUTOMATED 256 10^3/uL (150-450)
[2025-10-27 14:01] LABS: ALT/SGPT 25 U/L (7.0-40); AST/SGOT 26 U/L (<34); CALCIUM LEVEL 9.6 MG/DL (8.3-10.6); CARBON DIOXIDE LEVEL 32 MMOL/L (20-31); CHLORIDE LEVEL 95 MMOL/L (98-107); CHOLESTEROL LEVEL 168 MG/DL (<200); CHOLESTEROL RISK RATIO 1.85 (<5); CREATININE FOR GFR 0.57 MG/DL (0.55-1.30); GLOMERULAR FILTRATION RATE > 90.0 (>45); LDL CHOLESTEROL 65.8 MG/DL (<100); NON-HDL-C 77.6 MG/DL; POTASSIUM SERUM 4.3 MMOL/L (3.5-5.1); SODIUM LEVEL 130 MMOL/L (136-145); TOTAL 25(OH) VITAMIN D 65.7 NG/ML (20.0-100.0); TRIGLYCERIDES LEVEL 59 MG/DL (<150)
== END ==
LOC: M LABDRWAD 08:16
PROVIDERS: ATTEND Family Medicine
DX: E78.49 Other hyperlipidemia (principal); E87.1 Hypo-osmolality and hyponatremia; R53.83 Other fatigue